=== PATIENT | female | born 1970 | race Caucasian/White ===

== ENCOUNTER → 2016-09-01 | Outpatient (CLI) | payer OTHER, BC ==
[~2016-09-01] MED LIST: ACET325T14 PO; ACYC200C4 PO; LEVO137T3 PO; MULT-658 PO; OMEG1CAP34 PO
== END | disposition home or self-care (01) ==
LOC: CFH 10:56
PROVIDERS: ATTEND Obstetrics & Gynecology
DX: R92.2 Inconclusive mammogram (principal)
CPT/HCPCS: 76377; 76642